=== PATIENT | female | born 1950 | race Caucasian/White ===

== ENCOUNTER 2019-12-28 13:31 | Outpatient (CLI) | payer MEDICARE, MEDICAID, SELFPAY ==
--- NOTE | ~2019-12-28 | DEXA_ITS ---
Bone Density Report Name: Myriam Locke Age: 69 Sex: Female Ethnicity: White Date of : 1950 Indication: postmenopausal; screening for osteoporosis; height loss; asthma or emphysema; Referring Provider: Haydee*Steevn Rebolledo Study: Bone densitometry was performed. Exam Date: December 28, 2019 Accession number: [id number] Bone Density: Region BMD T-score Z-score Classification AP Spine(L1, L2, L3) 0.951 -0.6 1.4 Normal Femoral Neck (Left) 0.854 0.0 1.8 Normal Total Hip (Left) 0.998 0.5 2.0 Normal Femoral Neck (Right) 0.754 -0.9 0.9 Normal Total Hip (Right) 0.837 -0.9 0.6 Normal Femoral Neck Mean 0.804 -0.4 1.4 Normal Total Hip Mean 0.918 -0.2 1.3 Normal World Health Organization criteria for BMD impression classify patients as: Normal (T-score at or above -1.0), Osteopenia (T-score between -1.0 and -2.5), or Osteoporosis (T-score at or below -2.5). 10-year Fracture Risk: FRAX not reported because: All T-scores for Spine Total, Hip Total, Femoral Neck at or above -1.0 Clinical Information Provided by Patient: Has used the following medications: Vitamin D Has the following medical conditions: Asthma or Emphysema Patient maximum height was 66.5 Menopause Age: 44 Drinks caffeinated beverages Onset of menses at age 12 Number of children 4 Impression: The patient has normal bone mass. Discussion: BONE DENSITY IS ABOVE THE MINIMUM DESIRABLE LEVEL AT ALL SKELETAL SITES TESTED. This patient?s bone mineral density is above the minimum desirable level (T-score -1.0 or better) at all sites measured. The patient should follow a healthful lifestyle (good nutrition with adequate calcium and vitamin D, and appropriate weight-bearing exercise). Follow-Up: Consider repeating this study in 5 years or sooner if there is some new clinical indication. Reported by: Dr. Jeffery Goncalves on 12/28/2019 2:40:00 PM. Reviewed, dictated and finalized at location A. [facility]
== END 2019-12-28 13:32 | disposition home or self-care (01) ==
LOC: CHSIMG 13:36
PROVIDERS: PCP Family Medicine; Visit Provider Family Medicine
DX: Z78.0 Asymptomatic menopausal state (principal)
CPT/HCPCS: 77080